=== PATIENT | female | born 1980 | race Caucasian/White ===

== ENCOUNTER → 2018-02-11 21:45 | Outpatient (CLI) | payer OTHER, SELFPAY ==
[2018-02-15 10:30] LABS: HPV Reflexed? NOT INDICATED
== END ==
PROVIDERS: Visit Provider Obstetrics & Gynecology
DX: Z12.4 Encounter for screening for malignant neoplasm of cervix (principal); Z12.72 Encounter for screening for malignant neoplasm of vagina
CPT/HCPCS: 88175; G0145

== ENCOUNTER → 2019-02-11 10:53 | Outpatient (CLI) | payer OTHER, SELFPAY ==
[2019-02-17 14:22] LABS: HPV APTIMA, High Risk Negative (Negative)
== END ==
PROVIDERS: Referring Provider Obstetrics & Gynecology; Visit Provider Obstetrics & Gynecology
DX: Z12.4 Encounter for screening for malignant neoplasm of cervix (principal)
CPT/HCPCS: 88175; G0145

== ENCOUNTER → 2020-06-03 13:19 | Outpatient (CLI) | payer OTHER, SELFPAY ==
[2020-06-11 10:37] LABS: HPV APTIMA, High Risk Negative (Negative); HPV Reflexed? YES, CHARGE PATIENT
== END ==
PROVIDERS: Visit Provider Student in an Organized Health Care Education/Training Program
DX: Z12.4 Encounter for screening for malignant neoplasm of cervix (principal)
CPT/HCPCS: 87624; 88175; G0145

== ENCOUNTER → 2020-06-24 09:28 | Outpatient (CLI) | payer OTHER, SELFPAY ==
[2020-06-24 11:47] LABS: Cholesterol 252 mg/dL (200); High Density Lipoprotein 64 mg/dL; Thyroid Stim Hormone (TSH) 0.99 uIU/mL (0.358-3.74); Triglycerides 64 mg/dL; Very Low Density Lipoprotein 13 mg/dL (5-40)
[2020-06-24 11:51] LABS: Hemoglobin A1c 5.1 % (3.8-5.6)
== END ==
PROVIDERS: Visit Provider Student in an Organized Health Care Education/Training Program
DX: E28.2 Polycystic ovarian syndrome (principal)
CPT/HCPCS: 36415; 80061; 83036; 84443